=== PATIENT | female | born 1955 | race Caucasian/White ===

== ENCOUNTER → 2016-09-23 | Outpatient (CLI) | payer OTHER ==
[2016-03-13 14:59] VITALS: BP 124/60
[~2016-09-23] MED LIST: FAMO-63 PO; LISI-334 PO
--- NOTE | 2016-09-25 19:32 | SLEEP ---
DATE OF STUDY: 09/24/2016 HOME SLEEP STUDY ATTENDING PHYSICIAN: Dr. Stewart Corcoran. The patient is 61 years old who weighs 165 pounds and is 65 inches tall with a BMI of 27. Monroe score was 9. Home sleep study was performed by [facility]. The total recording time was 386 minutes. During the night study, the patient had 39 obstructive apneas, no central and 1 mixed apnea. The patient had 108 hypopneas. The patient's apnea-hypopnea index was 23 per hour with a supine index of 23 per hour as well. Nocturnal oximetry study revealed an average oxygen saturation of 90% with the lowest of 78%. 104 minutes were spent in oxygen saturation of less than 90%. Mean heart rate was 52 beats per minute. IMPRESSION: 1. Moderate sleep apnea-hypopnea syndrome with an AHI of 23 per hour. 2. Nocturnal hypoxia secondary to obstructive sleep apnea. RECOMMENDATIONS: 1. The patient should return for in-lab CPAP titration. 2. Avoid OLIVE KNOCKER depressants. 3. Caution regarding driving until symptoms of sleep apnea resolve with CPAP. ROBY WEST MD DR: PETER/shelbi JOB#: [id number] / [id number] KWASI
== END | disposition home or self-care (01) ==
LOC: RT 09:12
PROVIDERS: ATTEND Family Medicine
DX: G47.33 Obstructive sleep apnea (adult) (pediatric) (principal)
CPT/HCPCS: G0399

== ENCOUNTER 2016-10-17 10:02 | Observation (INO) | payer OTHER ==
[~2016-10-17] VITALS: Ht 165.1 cm; Wt 80.3 kg
[2016-10-17] MEDS ORDERED: EPINEPHrine 1 MG/ML VIAL ONE (10:05)
[2016-10-17] MEDS ORDERED: methylPREDNISolone SOD SUCC PF 125 MG/2 ML VIAL. ONE (10:06)
[2016-10-17] MEDS ORDERED: FAMOTIDINE 20 MG/2 ML VIAL ONE (10:06)
[2016-10-17] MEDS ORDERED: diphenhydrAMINE 50 MG/ML VIAL ONE (10:06)
[2016-10-17] MEDS ORDERED: IV NORMAL SALINE 1000ML BAG 1,000 ML IV ONE ×2 (10:15→12:30)
[2016-10-17] MEDS ORDERED: EPINEPHrine SYRINGE 1 MG/10 ML SYRINGE IM ONE (10:15)
[2016-10-17] MEDS ORDERED: ONDANSETRON PF 4 MG/2 ML VIAL. IV ONE (10:15)
[2016-10-17] MEDS ORDERED: FAMOTIDINE 20 MG/2 ML VIAL IVP ONE (10:15)
--- NOTE | 2016-10-17 10:16 | PHYS DOC ---
Past Medical History Past Medical History: High Cholesterol, Hypertension Past Surgical History: Hysterectomy Additional Past Surgical Histo: A CYSTOCELE AND RECTOCELE Alcohol Use: None Drug Use: None Adult General Chief Complaint Chief Complaint: allergic reaction HPI HPI Patient is a 61 year old female who presents with allergic reaction. States symptoms started yesterday evening, unknown cause. Patient's had allergic reaction before with aspirin but denies taking any aspirin. No new foods or no new contacts. Patient lives alone, she attempted EpiPen yesterday and symptoms have persisted. She reports nausea with vomiting, the vomit was black in nature. She takes no blood thinners. She has hives diffusely on her body, no tongue swelling noted. Patient was brought in by EMS. No recent illness or fevers. No new medications. Review of Systems Review of Systems Constitutional: Denies fever or chills [] Eyes: Denies change in visual acuity, redness, or eye pain [] HENT: Denies nasal congestion or sore throat [] Respiratory: Denies cough or shortness of breath [] Cardiovascular: Denies chest pain GI: Per history of present illness : Denies dysuria or hematuria [] Musculoskeletal: Denies back pain or joint pain [] Integument: Per history of present illness Neurologic: Denies headache, focal weakness or sensory changes [] Current Medications Current Medications Current Medications Medications (Trade) Dose Ordered Sig/[place] Start Time Stop Time Status Last Admin Dose Admin Diphenhydramine HCl (Benadryl) 50 mg 1X ONCE 10/17/16 10:30 10/17/16 10:31 DC 10/17/16 10:20 50 MG Epinephrine HCl (Adrenalin) 0.3 mg 1X ONCE 10/17/16 10:30 10/17/16 10:31 DC 10/17/16 10:21 0.3 MG Epinephrine HCl (Epinephrine Syringe) 0.3 mg 1X ONCE 10/17/16 10:15 10/17/16 10:16 DC Famotidine (Pepcid) 20 mg 1X ONCE 10/17/16 10:15 10/17/16 10:16 DC 10/17/16 10:16 20 MG Methylprednisolone Sodium Succinate (Solu-Medrol 125mg Vial) 125 mg 1X ONCE 10/17/16 10:30 10/17/16 10:31 DC 10/17/16 10:20 125 MG Ondansetron HCl (Zofran) 4 mg 1X ONCE 10/17/16 10:15 10/17/16 10:17 DC 10/17/16 10:27 4 MG Potassium Chloride (Klor-Con) 40 meq 1X ONCE 10/17/16 12:30 10/17/16 12:31 DC 10/17/16 13:20 40 MEQ Sodium Chloride 1,000 ml @ 1,000 mls/hr 1X ONCE 10/17/16 12:30 10/17/16 13:29 DC 10/17/16 13:22 1,000 MLS/HR Allergies Allergies Allergies Coded Allergies Type Severity Reaction Last Updated Verified No Known Drug Allergies 03/11/16 No Physical Exam Physical Exam Constitutional: Well developed, well nourished, laying still, speaks in full sentences, does not show acute respiratory distress HENT: Normocephalic, atraumatic, bilateral external ears normal, oropharynx moist, no oral exudates, nose normal, normal-appearing tongue, green slime vomitus residue on her tongue Eyes: PERRLA, EOMI, conjunctiva normal, no discharge. [] Neck: Normal range of motion, no tenderness, supple, no stridor. [] Cardiovascular:Heart rate regular with regular rhythm, no murmur [] Lungs & Thorax: Bilateral breath sounds clear to auscultation, moderate air movement, no wheeze or crackles] Abdomen: Bowel sounds normal, soft, no tenderness, no masses, no pulsatile masses. [] Skin: Warm, dry, diffuse urticaria with confluent lesions in some areas, singular circular lesions and others Back: No tenderness, no CVA tenderness. [] Extremities: No tenderness, no cyanosis, no clubbing, ROM intact, no edema. [] Neurologic: Alert and oriented X 3, normal motor function, normal sensory function, no focal deficits noted. [] Current Patient Data Vital Signs Vital Signs Date Time Temp Pulse Resp B/P (MAP) Pulse Ox O2 Delivery O2 Flow Rate FiO2 10/17/16 12:00 78 18 136/72 (93) 98 Room Air 10/17/16 10:02 98.4 4.0 98.4 Lab Values Laboratory Tests Test 10/17/16 11:30 White Blood Count 20.8 x10^3/uL (4.0-11.0) H Red Blood Count 6.02 x10^6/uL (3.50-5.40) H Hemoglobin 18.9 g/dL (12.0-15.5) H Hematocrit 56.4 % (36.0-47.0) H Mean Corpuscular Volume 94 fL (79-100) Mean Corpuscular Hemoglobin 32 pg (25-35) Mean Corpuscular Hemoglobin Concent 34 g/dL (31-37) Red Cell Distribution Width 13.3 % (11.5-14.5) Platelet Count 257 x10^3/uL (140-400) Neutrophils (%) (Auto) 95 % (31-73) H Lymphocytes (%) (Auto) 2 % (24-48) L Monocytes (%) (Auto) 3 % (0-9) Eosinophils (%) (Auto) 0 % (0-3) Basophils (%) (Auto) 0 % (0-3) Neutrophils # (Auto) 19.7 x10^3uL (1.8-7.7) H Lymphocytes # (Auto) 0.5 x10^3/uL (1.0-4.8) L Monocytes # (Auto) 0.6 x10^3/uL (0.0-1.1) Eosinophils # (Auto) 0.0 x10^3/uL (0.0-0.7) Basophils # (Auto) 0.0 x10^3/uL (0.0-0.2) Segmented Neutrophils % 89 % (35-66) H Band Neutrophils % 10 % (0-9) H Lymphocytes % 1 % (24-48) L Platelet Estimate Adequate (ADEQUATE) Sodium Level 138 mmol/L (136-145) Potassium Level 3.1 mmol/L (3.5-5.1) L Chloride Level 96 mmol/L (98-107) L Carbon Dioxide Level 20 mmol/L (21-32) L Anion Gap 22 (6-14) H Blood Urea Nitrogen 19 mg/dL (7-20) Creatinine 2.1 mg/dL (0.6-1.0) H Estimated GFR (Cockcroft-Gault) 23.9 BUN/Creatinine Ratio 9 (6-20) Glucose Level 309 mg/dL (70-99) H Calcium Level 8.5 mg/dL (8.5-10.1) Total Bilirubin 0.7 mg/dL (0.2-1.0) Aspartate Amino Transferase (AST) 14 U/L (15-37) L Alanine Aminotransferase (ALT) 26 U/L (14-59) Alkaline Phosphatase 50 U/L (46-116) Total Protein 6.5 g/dL (6.4-8.2) Albumin 3.5 g/dL (3.4-5.0) Albumin/Globulin Ratio 1.2 (1.0-1.7) Laboratory Tests 10/17/16 11:30 Laboratory Tests 10/17/16 11:30 EKG EKG [] Radiology/Procedures Radiology/Procedures [] Course & Med Decision Making Course & Med Decision Making Pertinent Labs and Imaging studies reviewed. (See chart for details) Patient treated for allergic reaction. 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 IV Solu-Medrol, Pepcid and Benadryl also given. We'll monitor the patient closely. Lab work obtained, patient's blood sugar in the 300s and has no history of known diabetes. Pt given IV fluids. Very complicated with getting labs, they believed labs were diluted and redrew. Difficulty to ensure that either is the true values. Pt admitted to Dr. Corcoran for further monitoring. Pt feeling improved, hives improving but still present. Dragon Disclaimer Dragon Disclaimer This electronic medical record was generated, in whole or in part, using a voice recognition dictation system. Departure Departure Impression: Primary Impression: Allergic reaction Disposition: ADMITTED INPATIENT Admitting Physician: Stewart Corcoran Condition: STABLE Referrals: STEWART CORCORAN MD (PCP) LEANNA NGO MD October 17, 2016 10:16
[2016-10-17] MEDS ORDERED: methylPREDNISolone SOD SUCC PF 125 MG/2 ML VIAL. IV ONE (10:30)
[2016-10-17] MEDS ORDERED: EPINEPHrine 1 MG/ML VIAL IM ONE (10:30)
[2016-10-17] MEDS ORDERED: diphenhydrAMINE 50 MG/ML VIAL IVP ONE (10:30)
[2016-10-17 11:56] LABS: BASO % 0 % (0-3); EOS % 0 % (0-3); HEMATOCRIT 56.4 % (36.0-47.0); HEMOGLOBIN 18.9 g/dL (12.0-15.5); LYMPH # 0.5 x10^3/uL (1.0-4.8); LYMPH % 2 % (24-48); MEAN CORPUSCULAR HEMOGLOBIN 32 pg (25-35); MEAN CORPUSCULAR HGB CONC 34 g/dL (31-37); MEAN CORPUSCULAR VOLUME 94 fL (79-100); MONO % 3 % (0-9); NEUT % 95 % (31-73); PLATELET COUNT 257 x10^3/uL (140-400); RED BLOOD COUNT 6.02 x10^6/uL (3.50-5.40); RED CELL DISTRIBUTION WIDTH 13.3 % (11.5-14.5); WHITE BLOOD COUNT 20.8 x10^3/uL (4.0-11.0)
[2016-10-17 12:03] LABS: ALBUMIN 3.5 g/dL (3.4-5.0); ALBUMIN/GLOBULIN RATIO 1.2 (1.0-1.7); CALCIUM 8.5 mg/dL (8.5-10.1); CREATININE 2.1 mg/dL (0.6-1.0); GFR 23.9; POTASSIUM 3.1 mmol/L (3.5-5.1); TOTAL BILIRUBIN 0.7 mg/dL (0.2-1.0); TOTAL PROTEIN 6.5 g/dL (6.4-8.2)
[2016-10-17] MEDS ORDERED: POTASSIUM CHLORIDE 20 MEQ TABLET.ER. PO ONE (12:30)
[2016-10-17 13:19] LABS: PLT ESTIMATE ADEQUATE (ADEQUATE)
[2016-10-17 14:05] VITALS: BP 163/78
[2016-10-17 14:52] VITALS: BP 167/77
[2016-10-17] MEDS ORDERED: diphenhydrAMINE HCL 25 MG CAPSULE PO ONE (18:15)
[2016-10-17] MEDS ORDERED: predniSONE 20 MG TABLET PO ONE (18:15)
[2016-10-17] MEDS ORDERED: FAMOTIDINE 20 MG TABLET. PO SCH (18:15)
[2016-10-17] MEDS ORDERED: CETIRIZINE HCL 10 MG TABLET. PO ONE (18:15)
[2016-10-17] MEDS: ONDANSETRON PF 4 MG/2 ML VIAL. IV PRN (18:43)
--- NOTE | 2016-10-17 18:44 | ACF ---
Admission Forms Criteria SYSTEMIC OR INFECTIOUS CONDITION Clinical Indications for Admission to Inpatient Care (Place 'X' for any and all applicable criteria): Hospital admission is needed for appropriate care of the patient because of ANY ONE of the following: []I. Hemodynamic instability indicated by ANY ONE of the following(1)(2)(3)(4 )(5): []a. Vital sign abnormality not readily corrected by appropriate treatment within 12 to 24 hours indicated by ANY ONE of the following: []i) Tachycardia that persists despite appropriate treatment []ii) Hypotension that persists despite appropriate treatment []iii) Orthostatic vital sign changes that persist despite appropriate treatment []b. Vital sign abnormality that is severe indicated by ANY ONE of the following: []i. Inadequate perfusion indicated by ANY ONE of the following: []1) Lactic acidosis (greater than 2 mmol/L) []2) New abnormal capillary refill (greater than 3 seconds) []3) Reduced urine output []4) New altered mental status []5) Myocardial Ischemia []ii. Mean arterial pressure [A] less than 60 mm Hg []iii. Mean arterial pressure[A] less than 70 mm Hg after 30 minutes of appropriate treatment (eg, fluid resuscitation) []iv. Sustained heart rate greater than 120 beats per minute in adult []v. IV inotropic or vasopressor medication required to maintain adequate blood pressure or perfusion []II. Systemic or infectious condition causing severe symptoms or findings not responsive to emergency or observation care treatment (as appropriate) indicated by ANY ONE of the following: []a. Cardiac arrhythmias of immediate concern(1)(2)(3) []b. Severe endocrine disorder (eg, thyrotoxicosis, adrenal insufficiency)(4)(5) []c. Seizures (eg, new or recurrent)(6) []d. New-onset end organ failure or dysfunction as indicated by ANY ONE of the following: []i. Acute unexplained hypoxemia (eg, not from lung infection or chronic disease)(7)(8)(9) []ii. Acute renal failure as indicated by new onset of ANY ONE of the following(10)(11)(12)(13)(14): []1) 3-fold rise in serum creatinine from baseline []2) Serum creatinine greater than 4 mg/dL (354 micromoles/L) with acute rise greater than 0.5 mg/dL (44.2 micromoles/L) []3) Reduction of more than 75% in estimated glomerular filtration rate from baseline. []4) Estimated glomerular filtration rate less than 35 mL/min/1.73m2 ( 0.59 mL/sec/1.73m2) in child younger than 18 years. []5) Cessation of urine output indicated by ALL of the following: []A. Adequate volume status []B. Inadequate urine output as indicated by ANY ONE of the following: []a. Urine output less than 0.3 mL/kg/hr for 24 hours []b. Anuria (urine output less than 0.1 mL/kg/hr) for 12 hours []iii. Acute mental status changes(15) []iv. Acute hepatic failure (eg, plasma bilirubin greater than 4 mg/ dL (68 micromoles/L), new INR greater than 2.0)(16)(17) []e. Unmanageable nausea and vomiting(18) []f. New-onset or uncontrolled central diabetes insipidus(19)(20) []g. Clinically significant dehydration(18)(21) []h. Hypoglycemia(22) []i. Acidosis (pH less than 7.35) or alkalosis (pH greater than 7.45)( 22)(23) []j. Toxic drug level that indicates need for specific monitoring or treatment(24)(25) []k. Severe electrolyte abnormalities indicated by ALL of the following( 1)(2)(3): []i. Electrolytes and associated findings are not as expected for patient baseline or acceptable treatment effects. []ii. Severe abnormalities indicated by ANY ONE of the following: []1) Sodium less than 130 mEq/L (mmol/L) (new) []2) Sodium less than 135 mEq/L (mmol/L) with ANY ONE of the following: []A. Uncorrectable (to near normal or chronic baseline) after trial of outpatient and emergency treatment []B. Altered mental status []C. Seizures []D. Severe medical etiology requiring inpatient management (eg , heart failure, hypovolemia) []3) Sodium greater than 155 mEq/L (mmol/L) []4) Sodium greater than 150 mEq/L (mmol/L) with ANY ONE of the following: []A. Uncorrectable (to near normal or chronic baseline) with outpatient and emergency treatment []B. Altered mental status []C. Seizures []D. Severe medical etiology (eg, hypovolemia, diabetes insipidus) []5) Potassium less than 2.5 mEq/L (mmol/L) despite outpatient and emergency treatment []6) Potassium less than 3 mEq/L (mmol/L) with ANY ONE of the following : []A. Weakness []B. Cardiac abnormality (eg, arrhythmia, conduction disturbance ) []C. Cardiac ischemia []D. Ileus []E. Ongoing medical cause requiring inpatient management (eg, acute renal wasting or SIADH) []F. Other severe symptoms []7) Potassium greater than 6.5 mEq/L (mmol/L) []8) Potassium greater than 5 mEq/L (mmol/L) with ANY ONE of the following: []A. Uncorrectable (to near normal or chronic baseline) with outpatient and emergency treatment []B. Severe ECG findings[A] []C. Acute worsening of renal failure (creatinine greater than 2.5 mg/dL (221 micromoles/L) or significant elevation for age and size) []D. Severe weakness []E. Severe medical etiology (eg, hemolysis, infection, drug overdose) []9) Calcium less than 7 mg/dL (1.75 mmol/L) despite outpatient and emergency treatment(5) []10) Calcium less than 8 mg/dL (2 mmol/L) with significant symptoms or findings (eg, altered mental status, muscle spasms, seizures, breathing difficulty, cardiac abnormality (eg, arrhythmia or conduction disturbance))(5) []11) Calcium greater than 14 mg/dL (3.5 mmol/L)(5) []12) Calcium greater than 12 mg/dL (3 mmol/L) with ANY ONE of the following(5): []A. Uncorrectable (to near normal or chronic baseline) with outpatient and emergency treatment []B. Significant dehydration or hypovolemia as indicated by ALL of the following(3)(6)(7): []a. Not resolved with initial treatments []b. Clinically significant dehydration as indicated by ANY ONE of the following: [](1) Vomiting refractory to outpatient treatment (ie, precluding oral rehydration) [](2) Inability to drink [](3) Hypernatremia or other electrolyte abnormality unable to be corrected with outpatient and emergency treatment [](4) Failure to remain hydrated with outpatient therapy [](5) Reduced urine output [](6) Hypotension [](7) Serious cause for dehydration requiring acute hospitalization ( eg, bowel obstruction, increased intracranial pressure, infectious cause) [](8) Child with ANY ONE of the following(8): [](i) Severe abdominal tenderness [](ii) Adequate care not available at home [](iii) Severe dehydration (greater than 9% loss of body weight) []C. Significant symptoms or findings (eg, altered mental status , cardiac abnormality (eg, arrhythmia, conduction disturbance), malignant etiology requiring inpatient treatment) []13) Phosphorus less than 1 mg/dL (0.32 mmol/L) []14) Phosphorus less than 1.5 mg/dL (0.48 mmol/L) with ANY ONE of the following: []A. Patient unresponsive to outpatient and emergency treatment []B. Significant symptoms or findings (eg, weakness, altered mental status, breathing difficulty, seizures, rhabdomyolysis) []15) Phosphorus greater than 10 mg/dL (3.2 mmol/L) []16) Phosphorus greater than 4.5 mg/dL (1.45 mmol/L) (new) with ANY ONE of the following: []A. Severe medical etiology (eg, crush injury, acute renal failure) []B. Associated hypocalcemia with significant findings (eg, neurologic symptoms, altered mental status, muscle spasms, seizures, breathing difficulty, cardiac abnormality (eg, arrhythmia, conduction disturbance)) []16) Magnesium less than 1 mg/dL (0.41 mmol/L) []17) Magnesium less than 1.5 mg/dL (0.62 mmol/L) with ANY ONE of the following: []A. Patient unresponsive to outpatient and emergency treatment []B. Associated hypocalcemia with significant findings (eg, altered mental status, muscle spasms, seizures, breathing difficulty, cardiac abnormality (eg, arrhythmia, conduction disturbance)) []C. Associated hypokalemia (potassium less than 3 mEq/L (mmol/L )) with risk of arrhythmia []18) Magnesium greater than 4 mEq/L (2 mmol/L) []19) Magnesium greater than 2.5 mEq/L (1.25 mmol/L) with significant symptoms or findings (eg, weakness, altered mental status, cardiac abnormality (eg, arrhythmia, conduction disturbance), breathing difficulty, severe medical etiology (eg, renal failure, hypovolemia)) []20) Uric acid greater than 20 mg/dL (1190 micromoles/L)(9) []21) Uric acid greater than 8 mg/dL (476 micromoles/L) with significant symptoms or findings of tumor lysis syndrome (eg, creatinine greater than 1.5 times upper limit of normal, cardiac abnormality (eg , arrhythmia, conduction disturbance), seizure)(9) []III. High fever or other high-risk infection situation as indicated by ANY ONE of the following(26)(27)(28): []a. Outpatient and observation care antimicrobial treatment unavailable, not effective, or not appropriate []b. Documented bacteremia []c. Temperature greater than 104.9 degrees F (40.5 degrees C) (oral) []d. Temperature greater than 103.1 degrees F (39.5 degrees C) (oral) or less than 96.8 degrees F (36 degrees C) (rectal) that does not respond to emergency treatment and observation care []IV. High-risk febrile neutropenia[A] as indicated by ANY ONE of the following(29)(30)(31)(32): []a. Profound neutropenia[B] anticipated to extend for more than 7 days []b. Hemodynamic instability []c. Hypoxemia []d. Tachypnea []e. Altered mental status []f. New-onset abdominal pain []g. New-onset vomiting or diarrhea []h. Oral or gastrointestinal mucositis that interferes with swallowing or causes severe diarrhea []i. Focal infection (eg, cellulitis, pneumonia, central line or catheter infection, perirectal abscess) []j. Renal insufficiency (eg, GFR of less than 30 mL/min/1.73m2 (0.5 mL/sec /1.73m2)). []k. Severe liver dysfunction (transaminase levels greater than 5 times normal) []l. Platelet count less than 50,000/mm3 (50 x109/L)(33) []m. Leukemia or lymphoma induction therapy []n. Leukemia not in complete remission or with evidence of disease progression []o. Bone marrow transplant patient []p. Alemtuzumab being used for therapy []q. Multinational Association for Supportive Care in Cancer (MASCC) Risk Index score of less than 21[C](33)(35). []V. Isolation required (eg, tuberculosis that requires isolation, Ebola infection)[D](36)(37)(38)(39)(40) []. Gangrene that requires treatment beyond emergency or observation level care(41)(42) []VII. Antitoxin administration and ongoing observation required (eg, tetanus, botulism)(43)(44) []. Suspected infection with rapid progression or severe symptoms as indicated by ANY ONE of the following(45): []a. Streptococcal or staphylococcal toxic shock(46) []b. Diphtheria(47) []c. Hantavirus(48) []d. Severe acute respiratory syndrome(8)(49) []e. Anthrax(50) []f. Ebola[D](36)(37)(38) []g. Necrotizing soft tissue infection(41)(42) []h. Plague(50) []i. Other suspected infection that requires care beyond emergency or observation level care []VII. Severe adverse drug or systemic toxin reaction as indicated by ANY ONE of the following(24): []a. Serotonin syndrome(51)(52) []b. Neuroleptic malignant syndrome(51)(52) []c. Cholinergic syndrome with severe symptoms (eg, bronchorrhea, weakness , mental status changes, seizures)(53) []d. Anticholinergic syndrome []e. Sympathetic syndrome with severe symptoms (eg, seizures, mental status changes, cardiac dysrhythmias) []f. Other severe adverse drug or systemic toxin reaction that remains after emergency or observation level care (as appropriate) []VIII. Allergic reaction with severe symptoms (not responsive to emergency or observation care treatment as appropriate), including ANY ONE of the following(54): []a. Airway edema (pharyngeal, epiglottic, or laryngeal edema) []b. Stridor []c. Respiratory failure []d. Bronchospasm []e. Hypotension []IX. Environmental emergency (not responsive to emergency or observation care treatment as appropriate) as indicated by ANY ONE of the following(55)(56): []a. Hyperthermia []b. Heat stroke []c. Heat exhaustion []d. Hypothermia (temperature less than 95 degrees F (35 degrees C) rectal) (57) []e. Electrocution(58) []X. Complications of transplanted organ (ie, not covered elsewhere)[E] indicated by ANY ONE of the following(59): []a. Acute graft rejection (or graft vs. host disease)[F] requiring inpatient management (eg, intravenous immunosuppression)(60)(61)(62)( 63) []b. Acute failure of transplanted organ necessitating inpatient care (eg, cannot be managed in other setting) []c. Infection requiring inpatient management (eg, Hemodynamic instability, need for intravenous antimicrobial treatment)(64)(65) []d. Other complication of transplanted organ requiring inpatient management [X]. Systemic or Infectious Condition condition, symptom, or finding for which emergency and observation care have failed or are not considered appropriate. See General Criteria: Observation Care, General Admission Criteria or Pediatric General Admission Criteria guideline as appropriate. The original [facility] content created by [facility] has been revised. The portions of the content which have been revised are identified through the use of italic text or in bold and [facility] has neither reviewed nor approved the modified material. All other unmodified content is copyright [facility]. Please see references footnoted in the original [facility] edition 2016 Admission Criteria Met?: Yes NENA ELIAS October 17, 2016 18:44
[2016-10-17 19:00] VITALS: BP 176/84
[2016-10-17 21:00] VITALS: BP 165/74
[2016-10-17] MEDS: diphenhydrAMINE HCL 25 MG CAPSULE PO PRN (22:37)
[2016-10-17 23:00] VITALS: BP 159/83
[2016-10-18] MEDS: ONDANSETRON PF 4 MG/2 ML VIAL. IV PRN ×2 (00:48→06:32)
[2016-10-18] MEDS: diphenhydrAMINE HCL 25 MG CAPSULE PO PRN ×4 (02:38→19:01)
[2016-10-18 03:00] VITALS: BP 126/63
[2016-10-18 07:00] VITALS: BP 154/72
[2016-10-18] MEDS ORDERED: CETIRIZINE HCL 10 MG TABLET. PO SCH (09:00)
[2016-10-18] MEDS ORDERED: POTASSIUM CL 20MEQ D5-0.45NACL 1,000 ML IV PRN (09:00)
[2016-10-18] MEDS ORDERED: FAMOTIDINE 20 MG TABLET. PO SCH ×3 (09:00→21:00)
--- NOTE | 2016-10-18 09:05 | PDOC ---
Provider Note Provider Note [id number] RY ORTIZ MD October 18, 2016 09:05
[2016-10-18 10:23] LABS: CALCIUM 8.7 mg/dL (8.5-10.1); CREATININE 1.1 mg/dL (0.6-1.0); GFR 50.3; POTASSIUM 4.1 mmol/L (3.5-5.1)
[2016-10-18 11:00] VITALS: BP 125/66
[2016-10-18 15:00] VITALS: BP 125/68
--- NOTE | 2016-10-18 21:59 | HP ---
ADMIT DATE: CHIEF COMPLAINT: Vomiting, diarrhea, and rash. HISTORY OF PRESENT ILLNESS: This is a 61-year-old white female who ____ norovirus over the weekend from some grandchildren and in the last 2-3 days, has had vomiting and diarrhea of a nonbloody type. She did develop some diffuse urticarial like rash and swelling and came to the ER. She was given epinephrine, Solu-Medrol and Zyrtec and admitted and so IV fluids were given. She still has nausea, but is feeling better as far as itching and rash at this time. She has not recently had any aspirin and lisinopril, which may have reacted to her last time, but has been taking 5 days of an OTC medicine for tinnitus, which does contain niacin ____ other herbs and vitamins. PAST MEDICAL HISTORY: The only home medication is losartan and she has not been on that for several days. ALLERGIES: NO ALLERGIES EXCEPT SUSPECTED TO ASPIRIN AND POSSIBLE LISINOPRIL. FAMILY HISTORY: Unremarkable. REVIEW OF SYSTEMS: Unremarkable. OBJECTIVE: ENT: All within normal limits. No facial swelling ____oral swelling or bruising. NECK: No carotid bruits, nodes or thyroid enlargement. LUNGS: Clear. CARDIOVASCULAR: Regular rate. No tachycardia or murmur. ABDOMEN: Soft, benign and nontender. EXTREMITIES: No urticarial rash, joint or skin lesions or nail bed findings. Skin turgor is good. Pedal pulses are good. NEUROLOGIC: Physiologic and nonfocal. ASSESSMENT: 1. Acute viral gastroenteritis. 2. Urticarial rash, etiology unclear at this time, but improving. 3. Laboratory evidence of acute kidney injury and hypokalemia. PLAN: We will add IV fluids and recheck renal function. Carafate for sore throat and GI rest for now. RY ORTIZ MD DR: CONNOR/shelbi JOB#: [id number] / [id number]
--- NOTE | 2016-10-19 00:36 | DS ---
DATE OF DISCHARGE: 10/18/2016 HOSPITAL SUMMARY: A 61-year-old white female came in with vomiting and diarrhea of couple of days after being exposed to a viral illness. She also had an urticaria like rash on her face and extremities and little bit on her lips but no wheezing or angioedema. Initial creatinine was 2.1, but later check was 1.1 and felt previously elevated. Potassium went from 3.1-4.1 with IV fluids and CBC showed a leukocytosis after epinephrine was given. She was given IV fluids and single dose of steroids and Zyrtec and now rash resolved completely. She was able to eat and drink without any further vomiting or diarrhea while in the hospital and she had normal laboratory studies and renal function. She was comfortable to be followed as an outpatient. FINAL DIAGNOSES: 1. Viral gastroenteritis, resolved. 2. Urticarial reaction, etiology undetermined. OPERATIONS, PROCEDURES, COMPLICATIONS AND CONSULTATIONS: None. DISPOSITION: She takes no home medications at this time. She avoids aspirin as a possible allergy and will not take any qqzd-duo-exjgvan medicines. Regular diet. Office followup as scheduled for blood pressure control. RY ORTIZ MD DR: CONNOR/shelbi JOB#: [id number] / [id number]
== END 2016-10-18 19:30 | disposition home or self-care (01) ==
LOC: ER 10:02 → 4 NORTH 12:34
PROVIDERS: ADMIT Family Medicine; ATTEND Family Medicine
DX: A08.4 Viral intestinal infection, unspecified (principal); L50.9 Urticaria, unspecified; E78.00 Pure hypercholesterolemia, unspecified; E87.6 Hypokalemia; I10 Essential (primary) hypertension; N17.9 Acute kidney failure, unspecified; Z90.710 Acquired absence of both cervix and uterus
CPT/HCPCS: 36415; 80048; 80053; 82947; 85007; 85027; 96361; 96365; 96366; 96372; 96375; 96376; 99285; G0378; J0171; J1200; J2405; J2930; J7030; J7512; Q0163; S0028; G0379